=== PATIENT | male | born 1970 | race Caucasian/White ===

== ENCOUNTER 2019-01-09 18:25 | Emergency (ER) | payer MEDICAID ==
[~2019-01-09] VITALS: Ht 167.6 cm; Wt 104.5 kg
[~2019-01-09 18:25] MED LIST: NOCURR
[2019-01-09] MEDS ORDERED: TETRACAINE HCL/PF 0.5% 4 ML OPHTHALMIC SOLUTION OD ONE (21:15)
[2019-01-09] MEDS ORDERED: FLUORESCEIN SODIUM 1 MG STRIP OD ONE (21:15)
[2019-01-09] MEDS ORDERED: PERTUSS(ACELL),DIPH,TET VAC/PF 0.5 ML VIAL IM ONE (21:30)
[2019-01-09] MEDS ORDERED: ERYTHROMYCIN 0.5% 3.5 GM TUBE OPHTHALMIC OINTMENT OD ONE (22:00)
[2019-01-09 22:22] VITALS: BP 136/85
== END 2019-01-09 22:25 | disposition home or self-care (01) ==
LOC: EMS 18:26
DX: T15.01XA Foreign body in cornea, right eye, initial encounter (principal); R03.0 Elevated blood-pressure reading, without diagnosis of hypertension; F17.210 Nicotine dependence, cigarettes, uncomplicated; X58.XXXA Exposure to other specified factors, initial encounter; Y93.89 Activity, other specified; Y92.89 Other specified places as the place of occurrence of the external cause; Y99.8 Other external cause status
CPT/HCPCS: 65222; 90471; 90715